=== PATIENT | female | born 1980 | race Caucasian/White ===

== ENCOUNTER → 2016-08-15 | Outpatient (CLI) | payer OTHER ==
--- NOTE | 2016-08-16 07:57 | EEG ---
DATE OF SERVICE: 08/15/2016 INDICATIONS FOR EXAMINATION: This patient is a 36-year-old female being evaluated for syncope and collapse. AGE: 36Y EEG FINDINGS: A routine 21-channel awake digital EEG recording was accomplished utilizing the 10-20 international system with bipolar and referential montages. The background activity in the most alert resting state consists of a low to medium amplitude, fairly well-developed and well-sustained 7-8 Hz activity over the posterior head regions. This posterior rhythm attenuates to eye opening. There is a small amount of low amplitude 18-20 Hz beta activity seen maximally over the anterior head regions. Muscle and movement artifact was observed on a few occasions during the tracing. Hyperventilation was not performed. Photic stimulation at flash frequencies of 2-30 Hz produced a good symmetrical occipital driving response. No epileptiform discharges were seen. IMPRESSION: This EEG is within normal limits for the patient's age. The EEG failed to reveal any focal, lateralized or epileptiform abnormalities. Clinical correlation is recommended.
== END ==
LOC: NEUROMAIN 12:43
PROVIDERS: ATTEND Family Medicine
DX: R55 Syncope and collapse (principal)
CPT/HCPCS: 95816

== ENCOUNTER → 2016-11-27 | Outpatient (CLI) | payer OTHER ==
--- NOTE | 2016-11-27 18:57 | MR ---
EXAMINATION TYPE: MR lumbar spine wo con DATE OF EXAM: 11/27/2016 COMPARISON: NONE HISTORY: LBP/injury, fell 4 mos ago TECHNIQUE: T1 and T2 axial and sagittal images of the lumbar spine are submitted. FINDINGS: There is no abnormal signal seen within the visualized spinal cord or paraspinal soft tissu es. At L1-2 there is no disc herniation, canal stenosis, or foraminal encroachment. At L2-3 there is no disc herniation, canal stenosis, or foraminal encroachment. Hypertrophic change o f the facets noted. At L3-4 there is no disc herniation or canal stenosis. No foraminal encroachment. Facet arthropathy n oted. At L4-5 there is disc desiccation with central disc protrusion and moderate effacement of thecal sac. There is mild bilateral foraminal encroachment with hypertrophic change of the facets and ligamentum flavum. Annular tear noted. At L5-S1 there is no disc herniation, canal stenosis, or foraminal encroachment. IMPRESSION: 1. At L4-5 there is disc desiccation with central disc protrusion and moderate effacement of thecal s ac. There is mild bilateral foraminal encroachment with hypertrophic change of the facets and ligamen camila flavum. Annular tear noted.
== END | disposition home or self-care (01) ==
LOC: RADMRIMAIN 14:56
PROVIDERS: ATTEND Physician Assistant
DX: M51.26 Other intervertebral disc displacement, lumbar region (principal)
CPT/HCPCS: 72148

== ENCOUNTER → 2017-01-23 | Outpatient (CLI) | payer OTHER ==
--- NOTE | 2017-01-23 19:56 | MR ---
EXAMINATION TYPE: MR thoracic spine wo con DATE OF EXAM: 01/23/2017 6:04 PM COMPARISON: NONE HISTORY: Pain mid back, pt fell at home Multiplanar MultiSpin echo imaging of the thoracic spine was performed. Degenerative disc disease and disc bulging at C5-6 and C6-7 identified only in the sagittal plane. Ax ial imaging was not performed through this region. Disc spaces: No evidence for herniation protrusion or significant degenerative disc disease. Spinal canal: No evidence for canal stenosis. No intrinsic or extrinsic lesion. Thoracic spinal cord: Thoracic spinal cord is of normal caliber and signal. Paraspinal soft tissues: No evidence for paraspinal mass. No destructive lesions seen. Vertebral segments: No evidence for fracture or bony lesion. IMPRESSION: 1. no significant abnormality of the thoracic spine. 2. Moderate disc bulging at C5-6 and C6-7. Consider dedicated evaluation of the thecal spine felt to be indicated.
== END | disposition home or self-care (01) ==
LOC: RADMRIMAIN 17:10
PROVIDERS: ATTEND Physical Medicine & Rehabilitation
DX: M47.814 Spondylosis without myelopathy or radiculopathy, thoracic region (principal); M47.817 Spondylosis without myelopathy or radiculopathy, lumbosacral region; M79.1 Myalgia
CPT/HCPCS: 72146

== ENCOUNTER 2017-05-02 08:48 | Emergency (ER) | payer OTHER ==
[2017-05-02] MEDS ORDERED: SODIUM CHLORIDE 0.9% 1,000 ML IV STA (09:12)
[2017-05-02] MEDS ORDERED: MECLIZINE 12.5 MG TAB PO STA (09:16)
--- NOTE | 2017-05-02 09:20 | ED ---
General Adult HPI - General Chief complaint: Neuro Symptoms/Deficit Stated complaint: Headache, Confused Time Seen by Provider: 05/02/17 09:00 Source: patient, RN notes reviewed, old records reviewed Mode of arrival: wheelchair Limitations: no limitations - History of Present Illness Initial comments: Patient 37-year-old female significant past medical history for Radha's, asthma, presenting today with a chief complaint of "feeling like I'm drunk". Patient states that symptoms started 4 days ago. She denies any change any medications. She states she feels unsteady on her feet. She states she feels near syncopal at times and had a near-syncopal episode a week ago. She states she felt it coming on so she sat down her sat behind her she did not fall patient does admit that she had a syncopal episodes similar to this approximately one year ago and had a full workup and they did not find anything wrong with her. Patient does admit that she saw her neurologist several years ago cannot remember why. Patient states she did see cardiology last year. Patient does admit to headache left side of the head on the top. She states she has had headaches similar to this in the past. Patient states that the dizzy Feeling is different to her and more constant at this time. States in the past seems to just come and go. Patient denies any other complaints or symptoms at this time Patient denies any recent fever, chills, shortness of breath, chest pain, back pain, abdominal pain, nausea or vomiting, numbness or tingling, dysuria or hematuria, constipation or diarrhea, visual changes, or any other complaints. - Related Data Home Medications Medication Instructions Recorded Confirmed ALPRAZolam [ALPRAZolam] 1 mg PO HS 05/12/15 05/02/17 Montelukast [Singulair] 10 mg PO DAILY 05/12/15 05/02/17 Biotin 5 mg PO DAILY 05/02/17 05/02/17 Calcium Polycarbophil [Fibercon] 625 mg PO DAILY 05/02/17 05/02/17 Cholecalciferol [Vitamin D3] 5,000 unit PO DAILY 05/02/17 05/02/17 Cider Vinegar [Apple Cider Vinegar] 300 mg PO DAILY 05/02/17 05/02/17 Cyanocobalamin (Vitamin B-12) 1,000 mcg PO DAILY 05/02/17 05/02/17 [Vitamin B-12] Desvenlafaxine [Pristiq ER] 100 mg PO DAILY 05/02/17 05/02/17 Garlic 1 tab PO DAILY 05/02/17 05/02/17 L.acidoph,Paracasei, B.lactis 1 cap PO DAILY 05/02/17 05/02/17 [Probiotic] Magnesium Oxide [Mag-Ox] 500 mg PO DAILY 05/02/17 05/02/17 Oil Of Oregano 1 tab PO DAILY 05/02/17 05/02/17 Thyroid,Pork [Donora Thyroid] 180 mg PO DAILY 05/02/17 05/02/17 Topiramate [Topamax] 50 mg PO BID 05/02/17 05/02/17 Vitamin A 8,000 unit PO DAILY 05/02/17 05/02/17 busPIRone HCL [Buspar] 7.5 mg PO BID 05/02/17 05/02/17 Previous Rx's Medication Instructions Recorded Meclizine [Antivert] 25 mg PO DAILY 10 Days tab 05/02/17 Allergies Allergy/AdvReac Type Severity Reaction Status Date / Time acetaminophen [From Vicodin] Allergy Dyspnea Verified 05/02/17 09:43 codeine Allergy Dyspnea Verified 05/02/17 09:43 hydrocodone bitartrate Allergy Dyspnea Verified 05/02/17 09:43 [From Vicodin] Penicillins Allergy Dyspnea Verified 05/02/17 09:43 shellfish derived [Shellfish] Allergy Dyspnea Verified 05/02/17 09:43 Sulfa (Sulfonamide Allergy Dyspnea Verified 05/02/17 09:43 Antibiotics) Review of Systems ROS Statement: Those systems with pertinent positive or pertinent negative responses have been documented in the HPI. ROS Other: All systems not noted in ROS Statement are negative. Past Medical History Past Medical History: Asthma, GERD/Reflux, Thyroid Disorder Additional Past Medical History / Comment(s): FREQUENT DIARRHEA History of Any Multi-Drug Resistant Organisms: None Reported Past Surgical History: Section, Cholecystectomy, Hysterectomy Additional Past Surgical History / Comment(s): LEEP, EGD Past Anesthesia/Blood Transfusion Reactions: Postoperative Nausea & Vomiting ( PONV) Past Psychological History: No Psychological Hx Reported Smoking Status: Former smoker Past Alcohol Use History: None Reported Past Drug Use History: None Reported General Exam - General Exam Comments Initial Comments: General: The patient is awake and alert, in no distress, and does not appear acutely ill. Eye: Pupils are equal, round and reactive to light, extra-ocular movements are intact. No nystagmus. There is normal conjunctiva bilaterally. No signs of icterus. Ears, nose, mouth and throat: There are moist mucous membranes and no oral lesions. Neck: The neck is supple, there is no tenderness or JVD. Cardiovascular: There is a regular rate and rhythm. No murmur, rub or gallop is appreciated. Respiratory: Lungs are clear to auscultation, respirations are non-labored, breath sounds are equal. No wheezes, stridor, rales, or rhonchi. Gastrointestinal: Soft, non-distended, non-tender abdomen without masses or organomegaly noted. There is no rebound or guarding present. No CVA tenderness. Bowel sounds are unremarkable. Musculoskeletal: Normal ROM, no tenderness. Strength 5/5. Sensation intact. Pulses equal bilaterally 2+. Neurological: A&O x 3. CN II-XII intact, There are no obvious motor or sensory deficits. Coordination appears grossly intact. Speech is normal. Normal finger nose testing. Normal rapid alternating movements. Strength is 5/5 in both upper and lower tremors. Skin: Skin is warm and dry and no rashes or lesions are noted. Psychiatric: Cooperative, appropriate mood & affect, normal judgment. Limitations: no limitations Course Vital Signs 05/02/17 05/02/17 05/02/17 08:50 10:25 11:20 Temperature 98.7 F Pulse Rate 117 H 91 Pulse Rate [ 85 Right Sitting Pulse Oximetery ] Pulse Rate [ 83 Right Standing Pulse Oximetery ] Pulse Rate [ 88 Right Supine Pulse Oximetery ] Respiratory 20 18 Rate Blood Pressure 144/101 136/83 Blood Pressure 131/83 [Left Arm Sitting] Blood Pressure 131/83 [Left Arm Standing] Blood Pressure 129/81 [Left Arm Supine] O2 Sat by Pulse 100 100 Oximetry EKG Findings - EKG Comments: EKG Findings:: EKG performed at 0915: A 12-lead EKG was performed and shows the following: Rate is 82, and rhythm is normal sinus. There are normal QRS complexes and normal R-wave progression. ST segments have no elevation or depression, and OR segments appear normal. Medical Decision Making - Medical Decision Making Case discussed in detail with attending physician Dr. Espinosa. Patient reexamined at this time shows no signs of distress resting comfortably. Patient has been able to her urine emergency room. Shows no signs of distress. Patient's labs been reviewed are unremarkable. CT of the brain negative. Patient does admit that she's had similar symptoms in the past. She states that she saw a neurologist but does not remember who was. States it was a few years ago. Patient at this time is doing well feels comfortable being discharged home. Will be given on-call neurology is also advised follow-up the family doctor. Advised return here to the emergency room symptoms increase worsen. Will be given prescription for meclizine for her symptoms. - Lab Data Result diagrams: 05/02/17 09:22 05/02/17 09:22 Lab Results 05/02/17 05/02/17 05/02/17 Range/Units 09:22 09:22 09:22 WBC 6.5 (3.8-10.6) k/uL RBC 5.08 (3.80-5.40) m/uL Hgb 15.2 (11.4-16.0) gm/dL Hct 44.4 (34.0-46.0) % MCV 87.5 (80.0-100.0) fL MCH 29.9 (25.0-35.0) pg MCHC 34.1 (31.0-37.0) g/dL RDW 12.0 (11.5-15.5) % Plt Count 293 (150-450) k/uL Neutrophils % 65 % Lymphocytes % 27 % Monocytes % 6 % Eosinophils % 1 % Basophils % 0 % Neutrophils # 4.2 (1.3-7.7) k/uL Lymphocytes # 1.7 (1.0-4.8) k/uL Monocytes # 0.4 (0-1.0) k/uL Eosinophils # 0.1 (0-0.7) k/uL Basophils # 0.0 (0-0.2) k/uL Sodium 142 (137-145) mmol/L Potassium 4.4 (3.5-5.1) mmol/L Chloride 104 (98-107) mmol/L Carbon Dioxide 24 (22-30) mmol/L Anion Gap 14 mmol/L BUN 12 (7-17) mg/dL Creatinine 0.83 (0.52-1.04) mg/dL Est GFR (CKD-EPI)AfAm >90 (>60 ml/min/1.73 sqM) Est GFR (CKD-EPI)NonAf >90 (>60 ml/min/1.73 sqM) Glucose 107 H (74-99) mg/dL Calcium 10.3 H (8.4-10.2) mg/dL Total Bilirubin 0.5 (0.2-1.3) mg/dL AST 30 (14-36) U/L ALT 28 (9-52) U/L Alkaline Phosphatase 73 (38-126) U/L Total Protein 7.9 (6.3-8.2) g/dL Albumin 4.9 (3.5-5.0) g/dL TSH 3.110 (0.465-4.680) mIU/L Urine Color Urine Appearance (Clear) Urine pH (5.0-8.0) Ur Specific [place] (1.001-1.035) Urine Protein (Negative) Urine Glucose (UA) (Negative) Urine Ketones (Negative) Urine Blood (Negative) Urine Nitrite (Negative) Urine Bilirubin (Negative) Urine Urobilinogen (<2.0) mg/dL Ur Leukocyte Esterase (Negative) Urine RBC (0-5) /hpf Urine WBC (0-5) /hpf Ur Squamous Epith Cells (0-4) /hpf Urine Mucus (None) /hpf Urine HCG, Qual (Not Detectd) 05/02/17 05/02/17 Range/Units 09:27 09:27 WBC (3.8-10.6) k/uL RBC (3.80-5.40) m/uL Hgb (11.4-16.0) gm/dL Hct (34.0-46.0) % MCV (80.0-100.0) fL MCH (25.0-35.0) pg MCHC (31.0-37.0) g/dL RDW (11.5-15.5) % Plt Count (150-450) k/uL Neutrophils % % Lymphocytes % % Monocytes % % Eosinophils % % Basophils % % Neutrophils # (1.3-7.7) k/uL Lymphocytes # (1.0-4.8) k/uL Monocytes # (0-1.0) k/uL Eosinophils # (0-0.7) k/uL Basophils # (0-0.2) k/uL Sodium (137-145) mmol/L Potassium (3.5-5.1) mmol/L Chloride (98-107) mmol/L Carbon Dioxide (22-30) mmol/L Anion Gap mmol/L BUN (7-17) mg/dL Creatinine (0.52-1.04) mg/dL Est GFR (CKD-EPI)AfAm (>60 ml/min/1.73 sqM) Est GFR (CKD-EPI)NonAf (>60 ml/min/1.73 sqM) Glucose (74-99) mg/dL Calcium (8.4-10.2) mg/dL Total Bilirubin (0.2-1.3) mg/dL AST (14-36) U/L ALT (9-52) U/L Alkaline Phosphatase (38-126) U/L Total Protein (6.3-8.2) g/dL Albumin (3.5-5.0) g/dL TSH (0.465-4.680) mIU/L Urine Color Light Yellow Urine Appearance Clear (Clear) Urine pH 7.0 (5.0-8.0) Ur Specific [place] 1.003 (1.001-1.035) Urine Protein Negative (Negative) Urine Glucose (UA) Negative (Negative) Urine Ketones Negative (Negative) Urine Blood Negative (Negative) Urine Nitrite Negative (Negative) Urine Bilirubin Negative (Negative) Urine Urobilinogen <2.0 (<2.0) mg/dL Ur Leukocyte Esterase Small H (Negative) Urine RBC 3 (0-5) /hpf Urine WBC 1 (0-5) /hpf Ur Squamous Epith Cells 2 (0-4) /hpf Urine Mucus Rare H (None) /hpf Urine HCG, Qual Not Detected (Not Detectd) Disposition Clinical Impression: Dizziness Disposition: HOME SELF-CARE Condition: Good Instructions: Vertigo (ED) Additional Instructions: Please use medication as discussed. Please follow-up with family doctor in the next 2 days. Please return to emergency room if the symptoms increase or worsen or for any other concerns. Prescriptions: Meclizine [Antivert] 25 mg PO DAILY 10 Days tab Referrals: Gaby Escalante DO [Primary Care Provider] - 1-2 days Lu Burgos MD [STAFF PHYSICIAN] - 1-2 days Time of Disposition: 11:34
[2017-05-02 09:33] LABS: Basophils % (A) 0 %; Eosinophils # (A) 0.1 k/uL (0-0.7); Eosinophils % (A) 1 %; HCT 44.4 % (34.0-46.0); HGB 15.2 gm/dL (11.4-16.0); Lymphocytes # (A) 1.7 k/uL (1.0-4.8); Lymphocytes % (A) 27 %; MCH 29.9 pg (25.0-35.0); MCHC 34.1 g/dL (31.0-37.0); MCV 87.5 fL (80.0-100.0); Mean Platelet Volume 7.2; Monocytes # (A) 0.4 k/uL (0-1.0); Monocytes % (A) 6 %; Neutrophils # (A) 4.2 k/uL (1.3-7.7); Neutrophils % (A) 65 %; Platelet Count 293 k/uL (150-450); RBC 5.08 m/uL (3.80-5.40); WBC 6.5 k/uL (3.8-10.6)
[2017-05-02 09:43] LABS: ALT 28 U/L (9-52); AST 30 U/L (14-36); Albumin 4.9 g/dL (3.5-5.0); Alkaline Phosphatase 73 U/L (38-126); Anion Gap 14 mmol/L; Blood Urea Nitrogen 12 mg/dL (7-17); Calcium 10.3 mg/dL (8.4-10.2); Carbon Dioxide 24 mmol/L (22-30); Chloride 104 mmol/L (98-107); Glucose 107 mg/dL (74-99); Potassium 4.4 mmol/L (3.5-5.1); Sodium 142 mmol/L (137-145); Total Bilirubin 0.5 mg/dL (0.2-1.3); Total Protein 7.9 g/dL (6.3-8.2)
[2017-05-02 09:51] LABS: Appearance,Urine Clear (Clear); Bilirubin,Urine Negative (Negative); Blood,Urine Negative (Negative); Color,Urine Light Yellow; Glucose,Urine (UA) Negative (Negative); Ketones,Urine Negative (Negative); Leukocyte Esterase,Urine Small (Negative); Mucus,Urine Rare /hpf; Protein,Urine Negative (Negative); RBC,Urine 3 /hpf (0-5); Specific Gravity,Urine 1.003 (1.001-1.035); Squamous Epithelial Cell,Urine 2 /hpf (0-4); Urobilinogen,Urine <2.0 mg/dL (<2.0); WBC,Urine 1 /hpf (0-5)
--- NOTE | 2017-05-02 10:22 | CT ---
EXAMINATION TYPE: CT brain wo con DATE OF EXAM: 05/02/2017 COMPARISON: NONE INDICATION: Headache, confused DLP: 1121 mGycm, Automated exposure control for dose reduction was used. CONTRAST: None CT of the brain is performed utilizing 3 mm thick sections through the posterior fossa and 3 mm thick sections through the remaining calvarium. Study is performed within 24 hours of arrival to the hosp [facility]. No abnormal hyperdensity is present to suggest an acute intracranial hemorrhage. No mass lesion is evident. No acute infarcts are evident. Ventricles and sulci are appropriate for the patient age. Paranasal sinuses and mastoid air cells within the [id number] are clear. IMPRESSIONS: 1. Normal CT Brain
[2017-05-02 10:26] VITALS: RESP 18
--- NOTE | 2017-05-02 10:33 | XR ---
EXAMINATION TYPE: XR chest 2V DATE OF EXAM: 05/02/2017 COMPARISON: 05/05/2009 INDICATION: Lightheaded, not feeling normal TECHNIQUE: Frontal and lateral views of the chest are obtained. FINDINGS: The heart size is normal. The pulmonary vasculature is normal. The lungs are clear. IMPRESSION: 1. No acute pulmonary process.
[2017-05-02 11:51] VITALS: BP 128/83; PULSE 83; TEMP 98.1
== END 2017-05-02 12:15 | disposition home or self-care (01) ==
LOC: EC 08:48
DX: R42 Dizziness and giddiness (principal); R51 Headache; J45.909 Unspecified asthma, uncomplicated; E06.3 Autoimmune thyroiditis; Z87.891 Personal history of nicotine dependence; Z79.899 Other long term (current) drug therapy; Z88.0 Allergy status to penicillin; Z88.2 Allergy status to sulfonamides; Z88.5 Allergy status to narcotic agent; Z88.8 Allergy status to other drugs, medicaments and biological substances; Z91.013 Allergy to seafood
CPT/HCPCS: 36415; 70450; 71046; 80053; 81001; 81025; 84443; 85025; 93005; 96360; 99285

== ENCOUNTER → 2017-05-14 | Outpatient (CLI) | payer OTHER ==
--- NOTE | 2017-05-14 21:59 | CT ---
EXAMINATION TYPE: CT sinus wo con DATE OF EXAM: 05/14/2017 COMPARISON: NONE HISTORY: Difficulty breathing through nose CT DLP: 569.1 mGycm. Automated Exposure Control for Dose Reduction was Utilized. TECHNIQUE: CT scan of the sinuses is performed without contrast, axial images are obtained, coronal r eformatted images are also reviewed. FINDINGS: A 4 mm area of round opacity left ethmoid sinus axial image 27 favor small mucous retention cyst or polyp. Remainder paranasal sinuses are clear without suspicious opacification or air-fluid l evels. The ostiomeatal complex is patent bilaterally on the coronal images. Visualized portion of mastoid air cells show no abnormal opacification. The globes are intact bilate rally. IMPRESSION: Small 4 mm left ethmoid sinus mucous retention cyst or polyp otherwise sinuses are clear and the ostiomeatal complex is patent bilaterally.
== END | disposition home or self-care (01) ==
LOC: RADCTMAIN 18:04
PROVIDERS: ATTEND Otolaryngology
DX: J32.9 Chronic sinusitis, unspecified (principal)
CPT/HCPCS: 70486

== ENCOUNTER → 2017-05-30 | Outpatient (CLI) | payer OTHER | END | disposition home or self-care (01) | LOC: PTMAIN 08:48 | PROVIDERS: ATTEND Otolaryngology | DX: K21.9 Gastro-esophageal reflux disease without esophagitis (principal) | CPT/HCPCS: 31579 ==

== ENCOUNTER → 2023-10-26 | Outpatient (CLI) | payer OTHER ==
--- NOTE | 2023-10-26 10:43 | CT ---
EXAMINATION TYPE: CT iac w con DATE OF EXAM: 10/26/2023 COMPARISON: None HISTORY: Tinnitus CT DLP: Not provided mGycm Automated exposure control for dose reduction was used. CONTRAST: CT scan of the IACs is performed with IV Contrast, patient injected with 100 mL of Isovue 300. FINDINGS: The external auditory canals are patent bilaterally. Mastoid air cells show no evidence of abnormal opacification bilaterally. The middle ear ossicles ar e symmetric and unremarkable. There is no evidence of suspicious surrounding soft tissue density to suggest cholesteatoma. The scu camila is preserved bilaterally. Slight nasal septal deviation and small willi bullosa on the right. Minimal ethmoidal mucosal thicke david. The cochlea and the semicircular canals are symmetric and unremarkable. Vestibular aqueduct and inte rnal carotid canal appear unremarkable. Temporomandibular joints are maintained bilaterally. IMPRESSION: No significant abnormality seen to account for patient's symptoms.
--- NOTE | 2023-10-26 10:52 | CT ---
EXAMINATION TYPE: CT sinus wo con DATE OF EXAM: 10/26/2023 COMPARISON: 05/15/1979 HISTORY: Sinusitis CT DLP: 826 mGycm. Automated Exposure Control for Dose Reduction was Utilized. TECHNIQUE: CT scan of the sinuses is performed without contrast, axial images are obtained, coronal r eformatted images are also reviewed. FINDINGS: The paranasal sinuses including the frontal, ethmoid, sphenoid, and maxillary sinuses bila terally are well-aerated without abnormal opacification. There is very mild mucosal thickening of th e ethmoid air cells. Tiny polyp or mucous retention cyst involving the left maxillary sinus. The osti omeatal complex is patent bilaterally on the coronal images. Visualized portion of mastoid air cells show no abnormal opacification. The globes are intact bilate rally. IMPRESSION: 1. Minimal changes of chronic ethmoidal sinusitis with no diagnostic evidence of sinusitis..
== END | disposition home or self-care (01) ==
LOC: RADCTMAIN 09:42
PROVIDERS: ATTEND Otolaryngology
DX: J32.2 Chronic ethmoidal sinusitis (principal); H93.13 Tinnitus, bilateral; J34.2 Deviated nasal septum
CPT/HCPCS: 70481; 70486; Q9967

== ENCOUNTER → 2023-11-16 | Outpatient (CLI) | payer OTHER ==
--- NOTE | 2023-11-16 08:28 | CT ---
EXAMINATION TYPE: CT abdomen pelvis w con CT DLP: 1399.4 mGycm, Automated exposure control for dose reduction was used. DATE OF EXAM: 11/16/2023 7:58 AM COMPARISON: None CLINICAL INDICATION: Female, 43 years old with history of R10.2 PELVIC PAIN; pelvic pain TECHNIQUE: Axial CT abdomen pelvis w con;Sagittal and coronal reformats were created on a separate w orkstation. Contrast used:100 mL of Isovue 300 with IV Contrast, (none if empty) Oral contrast used: with Oral Contrast (none if empty) FINDINGS: LOWER CHEST: Unremarkable ABDOMEN LIVER: Unremarkable GALLBLADDER AND BILE DUCTS: Unremarkable. PANCREAS: Unremarkable. SPLEEN: Unremarkable. ADRENAL GLANDS: Unremarkable. KIDNEYS AND URETERS: No evidence of hydronephrosis or renal calculus. The ureters are unremarkable. PELVIS BLADDER: Unremarkable REPRODUCTIVE: Unremarkable. ABDOMEN & PELVIS STOMACH AND BOWEL: No evidence of bowel obstruction. PERITONEUM/RETROPERITONEUM: No evidence of pneumoperitoneum or free fluid. VASCULATURE: No evidence of aortic aneurysm. MUSCULOSKELETAL: No acute osseous abnormalities LYMPH NODES: No gross evidence for lymphadenopathy. SOFT TISSUE/ABDOMINAL WALL: Unremarkable IMPRESSION: No evidence for acute abdominal process. [facility], , 11/16/2023 8:26 AM
== END | disposition home or self-care (01) ==
LOC: RADCTMAIN 06:16
PROVIDERS: ATTEND Family Medicine
DX: R10.2 Pelvic and perineal pain (principal)
CPT/HCPCS: 74177

== ENCOUNTER 2024-02-06 09:07 | Day surgery (SDC) | payer OTHER ==
[2024-02-04 11:14] VITALS: BMI 27.9
[2024-02-06] MEDS: OXYMETAZOLINE 0.05% NASL SPRAY 1 SPRAY BOTTLE EA NOSTRIL PRN (09:39)
[2024-02-06] MEDS: IV FLUID CONTINUATION 1,000 ML IV ONE (09:54)
[2024-02-06] MEDS: FAMOTIDINE 20 MG/2 ML VIAL IV PRN (09:56)
[2024-02-06] MEDS: ONDANSETRON 4 MG/2 ML VIAL IVP ONE (09:56)
[2024-02-06] MEDS: LACTATED RINGERS 1,000 ML IV SCH (09:57)
[2024-02-06] MEDS: DEXAMETHASONE SOD PHOSPHATE 4 MG/ML 1 ML VIAL IVP STA (09:58)
[2024-02-06] MEDS ORDERED: PROPOFOL 10 MG/ML 20 ML VIAL IV ONE (10:04)
[2024-02-06] MEDS ORDERED: fentaNYL (PF) 50 MCG/ML 2 ML AMP ONE (10:04)
[2024-02-06] MEDS ORDERED: ePHEDrine 50 MG/ML 1 ML VIAL ONE (10:04)
[2024-02-06] MEDS ORDERED: GLYCOPYRROLATE 0.2 MG/ML 2 ML VIAL ONE (10:04)
[2024-02-06] MEDS ORDERED: SUCCINYLCHOLINE CHLORIDE 200 MG/10 ML VIAL IV ONE (10:04)
[2024-02-06] MEDS ORDERED: LIDOCAINE 1% INJ 10MG/ML (20 ML MDV) ONE (10:04)
[2024-02-06] MEDS ORDERED: LIDOCAINE 4% LTA KIT (4 ML) TOPICAL ONE (10:04)
[2024-02-06] MEDS: LIDOCAINE 1%-EPI 1:100,000 20 ML VIAL SUBMUCOSAL ONE ×2 (10:21)
[2024-02-06] MEDS: BACITRACIN ZINC 500 UNIT/GM OINT 28.4 GM TUBE TOPICAL ONE ×2 (10:25→10:57)
--- NOTE | 2024-02-06 11:07 | P.OP ---
Date of Procedure: 02/06/24 Preoperative Diagnosis: deviated nasal septum Inferior turbinate hypertrophy Chronic sinusitis Postoperative Diagnosis: same Procedure(s) Performed: septoplasty Inferior turbinoplasty Bilateral endoscopic sinus surgery including bilateral maxillary antrostomy with removal of tissue from the maxillary sinuses, bilateral anterior ethmoidectomy, right willi bullectomy Anesthesia: JOANNE Surgeon: Zackery Barroso Estimated Blood Loss (ml): 10 Pathology: other (nasal septal bone and cartilage and sinus contents) Condition: stable Disposition: PACU Indications for Procedure: this is a 43-year-old white female whose had difficulties with chronic nasal airway obstruction congestion and recurrent/chronic sinusitis Operative Findings: nasal septum deviated to the right with inferior turbinate hypertrophy bilaterally ostiomeatal complexes were obstructed with small polyps in the maxillary sinuses removed. Moderate mucosal thickening in the anterior ethmoid sinuses, right willi bullosa cell Description of Procedure: The patient was brought into the operative suite and placed in a supine position. The patient underwent induction of general anesthesia with oral endotracheal intubation without difficulty. The patient was prepped and draped in the usual aseptic fashion with the orbits in the operating field for monitoring to the case and the computed tomography scan was on the computer screen for review throughout the case. 1% lidocaine with 1 :100,000 epinephrine was infused submucosally into both sides of the nasal septum as well as the lateral nasal wall and anterior tips of the middle turbinates. While this was taking vasoconstrictive effect the inferior turbinates were infractured with [place] elevator and partial submucous resection of the inferior turbinates was performed with a portion of the submucosal soft tissue and the inferior turbinate bone removed with Coblation device. The inferior turbinates were then outfractured with the [place] elevator. A left hemitransfixion incision was then made with the mucoperichondrial and mucoperiosteal flap on the left elevated. The bony cartilaginous junction was disarticulated and the mucoperiosteal flap on the right was elevated. Bony nasal septal deformities were removed with Rodriguez forceps and an inferior cartilaginous strip was removed leaving a full 1.5 cm caudal strut. Checking intranasally this corrected the nasoseptal deformities and the hemitransfixion incision was closed with a running 4-0 chromic suture. Full 0 endoscopic examination is performed bilaterally. Beginning on the left, the middle turbinate was medialized. The maxillary ostium was located with a ballpoint probe and an infundibulotomy was performed followed by uncinectomy. The maxillary antrostomy was enlarged at the expense of the anterior and posterior fontanelle taking care anteriorly not to injure the lacrimal bone. The maxillary sinus was evaluated with 30 and 70 endoscope .[Abnormal appearing tissue was removed from the maxillary sinus]. Anterior ethmoidectomy were then performed from anterior to posterior to the level of the skull base. The roof of the anterior ethmoid air cells were then cleaned from posterior to anterior using up-biting [place]akes[place] forceps. there was also a willi bullosa cell on the right and for willi bullectomy was performed with microdebrider removing the lateral one half of the middle turbinate Attention was then turned to the right where the procedures were followed as they had been on the leftincluding medialization middle turbinate infundibulotomy uncinectomy and maxillary antrostomy with removal of tissue from the maxillary sinus anterior ethmoidectomy. [Nasopore nasal dressing was placed in the middle meatus bilaterally under direct visualization]. Bilateral [place] airway splints coated with bacitracin oi ntment were placed and sutured transseptally with a 4-0 nylon suture. The patient was suctioned in oral gastric fashion and was allowed to emerge from general anesthesia having tolerated procedure well and was extubated in the operating suite and transferred to the postoperative recovery area in satisfactory condition.
[2024-02-06 11:23] VITALS: TEMP 97
[2024-02-06] MEDS: HYDROmorphone 0.5 MG/0.5 ML SYRINGE IVP PRN (11:48)
[2024-02-06] MEDS: IPRATROPIUM-ALBUTEROL 3 ML NEB INHALATION STA (11:55)
[2024-02-06 12:58] VITALS: BP 116/75; PULSE 79; RESP 18
== END 2024-02-06 13:06 | disposition home or self-care (01) ==
LOC: OR 09:07
PROVIDERS: ATTEND Otolaryngology
DX: J34.2 Deviated nasal septum (principal); J34.3 Hypertrophy of nasal turbinates; J32.9 Chronic sinusitis, unspecified; J45.909 Unspecified asthma, uncomplicated; I47.10 Supraventricular tachycardia, unspecified; U07.0 Vaping-related disorder; E07.9 Disorder of thyroid, unspecified; K21.9 Gastro-esophageal reflux disease without esophagitis; Z88.0 Allergy status to penicillin; Z88.2 Allergy status to sulfonamides; Z88.5 Allergy status to narcotic agent; Z88.1 Allergy status to other antibiotic agents; Z88.9 Allergy status to unspecified drugs, medicaments and biological substances; Z79.899 Other long term (current) drug therapy; Z79.890 Hormone replacement therapy
CPT/HCPCS: 30520; 31240; 31267; 31254; 88305; 88300; J0330; J1100; J0690; J2405; J2003; J3010; J3490; J2704; J1171; J1596

== ENCOUNTER 2024-02-11 12:36 | Emergency (ER) | payer OTHER ==
--- NOTE | 2024-02-11 12:52 | ED ---
General Adult HPI - General Chief complaint: Syncope Stated complaint: near Syncope Time Seen by Provider: 02/11/24 12:39 Source: patient, EMS, RN notes reviewed Mode of arrival: EMS Limitations: no limitations - History of Present Illness Initial comments: Patient is a 43-year-old female presenting to the emergency department with near syncopal feeling. Patient has had similar episodes multiple times previously, sometimes up to 12 times in a day. Episode today seemed to be worse than normal and lasted longer. Episode lasted 10 to 15 minutes. Patient did feel sweaty. Patient had tingling in both of her arms. Patient did have some nausea. Sy mptoms have resolved and patient is currently symptom-free. No chest pain. Patient may have had some mild dyspnea however that is normal for her when she has these episodes. No palpitations. No back pain. No weakness or confusion. No headache. - Related Data Home Medications Medication Instructions Recorded Confirmed ALPRAZolam 1 mg PO HS 05/12/15 02/06/24 Cholecalciferol [Vitamin D3] 10,000 unit PO HS 05/02/17 02/06/24 Thyroid,Pork [[place] Thyroid] 180 mg PO DAILY 05/02/17 02/06/24 Dextroamphetamine/Amphetamine 20 mg PO BID 02/04/24 02/06/24 [Adderall] Montelukast [Singulair] 10 mg PO HS 02/04/24 02/06/24 Spironolactone 25 mg PO HS 02/04/24 02/06/24 Cider Vinegar [Apple Cider Vinegar] 2 capsule PO DAILY 02/06/24 02/06/24 Allergies Allergy/AdvReac Type Severity Reaction Status Date / Time cetirizine [From Zyrtec] Allergy Rash/Hives Verified 02/06/24 09:45 ciprofloxacin [From Cipro] Allergy Unknown Verified 02/06/24 09:45 Childhood codeine Allergy Dyspnea Verified 02/06/24 09:45 hydrocodone bitartrate Allergy Dyspnea Verified 02/06/24 09:45 [From Vicodin] metronidazole Allergy Rash/Hives Verified 02/06/24 09:45 Penicillins Allergy Dyspnea Verified 02/06/24 09:45 shellfish derived [Shellfish] Allergy Dyspnea Verified 02/06/24 09:45 Sulfa (Sulfonamide Allergy Dyspnea Verified 02/06/24 09:45 Antibiotics) doxycycline AdvReac Unknown Verified 02/11/24 12:47 tramadol AdvReac Unknown Verified 02/11/24 12:47 Review of Systems ROS Statement: Those systems with pertinent positive or pertinent negative responses have been documented in the HPI. ROS Other: All systems not noted in ROS Statement are negative. Constitutional: Denies: fever Eyes: Denies: eye pain ENT: Denies: ear pain Respiratory: Reports: as per HPI. Denies: cough Cardiovascular: Denies: chest pain, palpitations Endocrine: Denies: fatigue Gastrointestinal: Reports: nausea. Denies: abdominal pain Musculoskeletal: Denies: back pain Past Medical History Past Medical History: Supraventricular Tachycardia (SVT), Thyroid Disorder Additional Past Medical History / Comment(s): HASHIMOTOS. RAYNAUD'S. SEASONAL ALLERGIES. History of Any Multi-Drug Resistant Organisms: None Reported Past Surgical History: Section, Cholecystectomy, Hysterectomy Additional Past Surgical History / Comment(s): LEEP, EGD. PELLET EXC FROM NECK. RT LOWER JAW BONE GRAFT WITH DENTAL IMPLANT, TRACHELECTOMY 2 WEEKS AGO Past Anesthesia/Blood Transfusion Reactions: Previous Problems w/ Anesthesia Additional Past Anesthesia/Blood Transfusion Reaction / Comment(s): SLOW TO WAKE UP, HAS BRADYCARDIA AND HYPOTENSION WHEN COMING OUT OF ANESTHESIA. NO HX BLOOD TRANSFUSION Past Psychological History: No Psychological Hx Reported, ADD/ADHD Smoking Status: Former smoker, Vaper Past Alcohol Use History: None Reported Past Drug Use History: None Reported - Past Family History Mother Family Medical History: No Reported History General Exam Limitations: no limitations General appearance: alert, in no apparent distress Head exam: Present: normocephalic Eye exam: Present: normal appearance Neck exam: Present: normal inspection Respiratory exam: Present: normal lung sounds bilaterally. Absent: respiratory distress, wheezes, rales, rhonchi, stridor Cardiovascular Exam: Present: regular rate, normal rhythm, normal heart sounds GI/Abdominal exam: Present: soft. Absent: tenderness, pulsatile mass Extremities exam: Present: normal inspection. Absent: pedal edema, calf tenderness Neurological exam: Present: alert, oriented X3, CN II-XII intact. Absent: motor sensory deficit Expanded Cranial nerves: EOM's Intact: Normal Motor strength exam: RUE: 5, LUE: 5, RLE: 5, LLE: 5 Eye Response: (4) open spontaneously Motor Response: (6) obeys commands Verbal Response: (5) oriented Psychiatric exam: Present: normal affect, normal mood Skin exam: Present: normal color Course Vital Signs 02/11/24 02/11/24 02/11/24 12:36 13:41 14:43 Temperature 98.2 F Pulse Rate 61 55 L 54 L Respiratory 18 18 16 Rate Blood Pressure 137/87 103/63 101/63 O2 Sat by Pulse 95 100 Oximetry 02/11/24 15:36 Temperature 97.9 F Pulse Rate 57 L Respiratory 16 Rate Blood Pressure 113/74 O2 Sat by Pulse 100 Oximetry EKG Findings - EKG Results: EKG: interpreted by ERMD (Nonspecific T wave), sinus rhythm, normal axis, normal QRS EKG shows: bradycardia Medical Decision Making - Medical Decision Making Was pt. sent in by a medical professional or institution (Dr. PA, RAILROAD POLICE OFFICER, urgent care, hospital, or group home...) When possible be specific @ -No Did you speak to anyone other than the patient for history (EMS, parent, family, police, friend...)? What history was obtained from this source @ -No Did you review nursing and triage notes (agree or disagree)? Why? @ -I reviewed and agree with nursing and triage notes Were old charts reviewed (outside hosp., previous admission, EMS record, old EKG, old radiological studies, urgent care reports/EKG's, group home records)? Report findings @ -Previous chest x-ray shows no acute process Differential Diagnosis (chest pain, altered mental status, abdominal pain women, abdominal pain men, vaginal bleeding, weakness, fever, dyspnea, syncope, headache, dizziness, GI bleed, back pain, seizure, CVA, palpatations, mental health, musculoskeletal)? @ -Differential Syncope: Valvular disease, hypertrophic cardiomyopathy, pulmonary embolism, tamponade, tachycardia, bradycardia, HI, hypovolemia, hemorrhage, dissection, anemia, intracranial hemorrhage, seizure, hypoglycemia, carbon monoxide poisoning, this is not meant to be an all-inclusive list. EKG interpreted by me (3pts min.). @ -As above X-rays interpreted by me (1pt min.). @ -Chest x-ray shows no acute process CT interpreted by me (1pt min.). @ -None done U/S interpreted by me (1pt. min.). @ -None done What testing was considered but not performed or refused? (CT, X-rays, U/S, labs)? Why? @ -None What meds were considered but not given or refused? Why? @ -None Did you discuss the management of the patient with other professionals (professionals i.e. , PA, RAILROAD POLICE OFFICER, lab, RT, psych nurse, community mental health social worker, fermenter helper, teacher, corporate trust officer, correctional case records supervisor)? Give summary @ -No Was smoking cessation discussed for >3mins.? @ -No Was critical care preformed (if so, how long)? @ -No Were there social determinants of health that impacted care today? How? (Homelessness, low income, unemployed, alcoholism, drug addiction, transportation, low edu. Level, literacy, decrease access to med. care, care home, rehab)? @ -No Was there de-escalation of care discussed even if they declined (Discuss DNR or withdrawal of care, Hospice)? DNR status @ -No What co-morbidities impacted this encounter? (DM, HTN, Smoking, COPD, CAD, Cancer, CVA, ARF, Chemo, Hep., AIDS, mental health diagnosis, sleep apnea, morbi d obesity)? @ -Patient does have history of previous near syncopal episode Was patient admitted / discharged? Hospital course, mention meds given and route, prescriptions, significant lab abnormalities, going to OR and other pertinent info. @ -Patient presents with concern for near syncopal episode. Patient symptom- free on arrival and upon reevaluation. Evaluation unremarkable. Exam unremarka ble. Patient updated on results and need for follow-up. Patient is comfortable with discharge home. Patient does request Tylenol for her sinus discomfort, she is status post sinus surgery last week. Undiagnosed new problem with uncertain prognosis? @ -No Drug Therapy requiring intensive monitoring for toxicity (Heparin, Nitro, Insulin, Cardizem)? @ -No Were any procedures done? @ -No Diagnosis/symptom? @ -Near syncope Acute, or Chronic, or Acute on Chronic? @ -Acute Uncomplicated (without systemic symptoms) or Complicated (systemic symptoms)? @ -Default Side effects of treatment? @ -No Exacerbation, Progression, or Severe Exacerbation? @ -No Poses a threat to life or bodily function? How? (Chest pain, USA, HI, pneumonia, PE, COPD, DKA, ARF, appy, cholecystitis, CVA, Diverticulitis, Homicidal, Suicidal, threat to staff... and all critical care pts) @ -No - Lab Data Result diagrams: 02/11/24 13:17 02/11/24 13:17 Lab Results 02/11/24 02/11/24 02/11/24 Range/Units 13:17 13:17 13:17 WBC 15.4 H (3.8-10.6) k/uL RBC 4.79 (3.80-5.40) m/uL Hgb 14.1 (11.4-16.0) gm/dL Hct 44.0 (34.0-46.0) % MCV 92.0 (80.0-100.0) fL MCH 29.5 (25.0-35.0) pg MCHC 32.1 (31.0-37.0) g/dL RDW 12.4 (11.5-15.5) % Plt Count 410 (150-450) k/uL MPV 6.7 Neutrophils % 76 % Lymphocytes % 17 % Monocytes % 5 % Eosinophils % 2 % Basophils % 0 % Neutrophils # 11.6 H (1.3-7.7) k/uL Lymphocytes # 2.6 (1.0-4.8) k/uL Monocytes # 0.7 (0-1.0) k/uL Eosinophils # 0.3 (0-0.7) k/uL Basophils # 0.1 (0-0.2) k/uL PT 10.6 (10.0-12.5) sec INR 0.9 (<1.2) APTT 20.4 L (22.0-30.0) sec D-Dimer 0.51 (<0.60) mg/L FEU Sodium 138 (137-145) mmol/L Potassium 3.9 (3.5-5.1) mmol/L Chloride 100 (98-107) mmol/L Carbon Dioxide 32 H (22-30) mmol/L Anion Gap 6 mmol/L BUN 10 (7-17) mg/dL Creatinine 0.83 (0.52-1.04) mg/dL Est GFR (CKD-EPI)AfAm >90 (>60 ml/min/1.73 sqM) Est GFR (CKD-EPI)NonAf 88 (>60 ml/min/1.73 sqM) Glucose 51 L (74-99) mg/dL Calcium 9.2 (8.4-10.2) mg/dL Magnesium 2.1 (1.6-2.3) mg/dL Total Bilirubin 0.3 (0.2-1.3) mg/dL AST 22 (14-36) U/L ALT 20 (4-34) U/L Alkaline Phosphatase 60 (38-126) U/L Troponin I (0.000-0.034) ng/mL Total Protein 6.5 (6.3-8.2) g/dL Albumin 4.3 (3.5-5.0) g/dL Urine Color Urine Appearance (Clear) Urine pH (5.0-8.0) Ur Specific [place] (1.001-1.035) Urine Protein (Negative) Urine Glucose (UA) (Negative) Urine Ketones (Negative) Urine Blood (Negative) Urine Nitrite (Negative) Urine Bilirubin (Negative) Urine Urobilinogen (<2.0) mg/dL Ur Leukocyte Esterase (Negative) Urine HCG, Qual (Not Detectd) 02/11/24 02/11/24 02/11/24 Range/Units 13:17 14:03 14:06 WBC (3.8-10.6) k/uL RBC (3.80-5.40) m/uL Hgb (11.4-16.0) gm/dL Hct (34.0-46.0) % MCV (80.0-100.0) fL MCH (25.0-35.0) pg MCHC (31.0-37.0) g/dL RDW (11.5-15.5) % Plt Count (150-450) k/uL MPV Neutrophils % % Lymphocytes % % Monocytes % % Eosinophils % % Basophils % % Neutrophils # (1.3-7.7) k/uL Lymphocytes # (1.0-4.8) k/uL Monocytes # (0-1.0) k/uL Eosinophils # (0-0.7) k/uL Basophils # (0-0.2) k/uL PT (10.0-12.5) sec INR (<1.2) APTT (22.0-30.0) sec D-Dimer (<0.60) mg/L FEU Sodium (137-145) mmol/L Potassium (3.5-5.1) mmol/L Chloride (98-107) mmol/L Carbon Dioxide (22-30) mmol/L Anion Gap mmol/L BUN (7-17) mg/dL Creatinine (0.52-1.04) mg/dL Est GFR (CKD-EPI)AfAm (>60 ml/min/1.73 sqM) Est GFR (CKD-EPI)NonAf (>60 ml/min/1.73 sqM) Glucose (74-99) mg/dL Calcium (8.4-10.2) mg/dL Magnesium (1.6-2.3) mg/dL Total Bilirubin (0.2-1.3) mg/dL AST (14-36) U/L ALT (4-34) U/L Alkaline Phosphatase (38-126) U/L Troponin I <0.012 (0.000-0.034) ng/mL Total Protein (6.3-8.2) g/dL Albumin (3.5-5.0) g/dL Urine Color Yellow Urine Appearance Clear (Clear) Urine pH 8.0 (5.0-8.0) Ur Specific [place] 1.019 (1.001-1.035) Urine Protein Trace H (Negative) Urine Glucose (UA) Negative (Negative) Urine Ketones Negative (Negative) Urine Blood Negative (Negative) Urine Nitrite Negative (Negative) Urine Bilirubin Negative (Negative) Urine Urobilinogen <2.0 (<2.0) mg/dL Ur Leukocyte Esterase Negative (Negative) Urine HCG, Qual Not Detected (Not Detectd) Disposition Clinical Impression: Near syncope Disposition: HOME SELF-CARE Condition: Stable Instructions (If sedation given, give patient instructions): Near Syncope (ED) Additional Instructions: Please do follow-up primary care physician in the next 1 or 2 days for recheck. Please also follow-up with your ENT doctor. Return for passing out, weakness, confusion, headaches, chest pain or shortness of breath, worsening symptoms or other concerns. Is patient prescribed a controlled substance at d/c from ED?: No Referrals: Gayb Escalante DO [Primary Care Provider] - 1-2 days Time of Disposition: 16:01
[2024-02-11 13:28] LABS: Basophils # (A) 0.1 k/uL (0-0.2); Basophils % (A) 0 %; Eosinophils # (A) 0.3 k/uL (0-0.7); Eosinophils % (A) 2 %; HGB 14.1 gm/dL (11.4-16.0); Lymphocytes # (A) 2.6 k/uL (1.0-4.8); Lymphocytes % (A) 17 %; MCH 29.5 pg (25.0-35.0); MCHC 32.1 g/dL (31.0-37.0); Mean Platelet Volume 6.7; Monocytes # (A) 0.7 k/uL (0-1.0); Monocytes % (A) 5 %; Neutrophils # (A) 11.6 k/uL (1.3-7.7); Neutrophils % (A) 76 %; Platelet Count 410 k/uL (150-450); RBC 4.79 m/uL (3.80-5.40); RDW 12.4 % (11.5-15.5); WBC 15.4 k/uL (3.8-10.6)
[2024-02-11 13:40] LABS: ALT 20 U/L (4-34); AST 22 U/L (14-36); African American GFR (CKD) >90 (>60 ml/min/1.73 sqM); Albumin 4.3 g/dL (3.5-5.0); Alkaline Phosphatase 60 U/L (38-126); Anion Gap 6 mmol/L; Blood Urea Nitrogen 10 mg/dL (7-17); Calcium 9.2 mg/dL (8.4-10.2); Carbon Dioxide 32 mmol/L (22-30); Chloride 100 mmol/L (98-107); Glucose 51 mg/dL (74-99); Magnesium 2.1 mg/dL (1.6-2.3); Non-African American GFR(CKD) 88 (>60 ml/min/1.73 sqM); Potassium 3.9 mmol/L (3.5-5.1); Sodium 138 mmol/L (137-145); Total Bilirubin 0.3 mg/dL (0.2-1.3); Total Protein 6.5 g/dL (6.3-8.2)
[2024-02-11 13:45] LABS: INR 0.9 (<1.2); Prothrombin Time 10.6 sec (10.0-12.5)
--- NOTE | 2024-02-11 13:57 | XR ---
EXAMINATION TYPE: XR chest 2V DATE OF EXAM: 02/11/2024 1:40 PM COMPARISON: None. CLINICAL INDICATION: Female, 43 years old with history of syncope, TECHNIQUE: Frontal and lateral views of the chest are obtained. FINDINGS: There is no focal air space opacity, pleural effusion, or pneumothorax seen. The cardiac silhouette size is within normal limits. The osseous structures are intact. IMPRESSION: No acute cardiopulmonary process. [facility], , 02/11/2024 1:54 PM
[2024-02-11 14:08] LABS: Partial Thromboplastin Time 20.4 sec (22.0-30.0)
[2024-02-11 14:11] LABS: Appearance,Urine Clear (Clear); Bilirubin,Urine Negative (Negative); Blood,Urine Negative (Negative); Color,Urine Yellow; Glucose,Urine (UA) Negative (Negative); Ketones,Urine Negative (Negative); Leukocyte Esterase,Urine Negative (Negative); Nitrite,Urine Negative (Negative); Protein,Urine Trace (Negative); Specific Gravity,Urine 1.019 (1.001-1.035); Urobilinogen,Urine <2.0 mg/dL (<2.0)
[2024-02-11 14:45] VITALS: RESP 16
[2024-02-11 15:40] VITALS: BP 113/74
[2024-02-11] MEDS: ACETAMINOPHEN TAB 500 MG TAB PO STA (16:00)
[2024-02-11 16:10] VITALS: PULSE 61; TEMP 97.7
== END 2024-02-11 16:12 | disposition home or self-care (01) ==
LOC: EC 12:36
DX: R55 Syncope and collapse (principal); F17.290 Nicotine dependence, other tobacco product, uncomplicated; Z88.0 Allergy status to penicillin; Z88.1 Allergy status to other antibiotic agents; Z88.2 Allergy status to sulfonamides; Z88.5 Allergy status to narcotic agent; Z88.8 Allergy status to other drugs, medicaments and biological substances; Z91.013 Allergy to seafood
CPT/HCPCS: 36415; 71046; 80053; 81003; 81025; 83735; 84484; 85025; 85379; 85610; 85730; 93005; 99285